=== PATIENT | female | born 1935 | race Caucasian/White ===

== ENCOUNTER 2021-12-24 07:34 | Inpatient (IN) | payer MEDICARE, OTHER ==
[2021-12-24 08:49] LABS: Urine Blood Negative (Negative); Urine Glucose Negative (Negative); Urine Protein Negative (Negative)
[2021-12-24 08:57] LABS: Absolute Lymphocytes (CBC) 0.9 K/uL (0.7-4.9); Hematocrit 34.5 % (36.0-45.0); Lymphocytes % 3.4 % (15.3-44.8); MCV 76.4 fL (80-100); MPV 7.5 fL (7.6-11.3); RBC Red Blood Cell Count 4.52 M/uL (3.86-4.86)
[2021-12-24 08:59] LABS: Protime INR 0.85
[2021-12-24 09:17] LABS: AST/SGOT 14 U/L (15-37); Alkaline Phosphatase 106 U/L (45-117); BUN Blood Urea Nitrogen 12 mg/dL (7-18); Bicarbonate 25 mmol/L (21-32); Bilirubin Direct 0.2 mg/dL (0-0.2); Bilirubin Total 0.3 mg/dL (0.2-1.0); Glomerular Filtration Rate 101 ml/min (=/>90); Glucose Level 166 mg/dL (74-106); NT PRO-BNP 6187 pg/mL (<450); Potassium 3.7 mmol/L (3.5-5.1); Protein, Total 5.8 g/dL (6.4-8.2); Sodium Level 136 mmol/L (136-145)
[2021-12-24 09:18] LABS: ALT/SGPT < 10 U/L (12-78)
[2021-12-24 09:19] LABS: Troponin High Sensitivity 309.5 pg/mL (<58.9)
--- NOTE | 2021-12-24 09:20 | RAD REPORT ---
EXAM DESCRIPTION: [place] Single View12/24/2021 8:29 am CLINICAL HISTORY: Cough COMPARISON: none FINDINGS: Mild elevation right hemidiaphragm The lungs appear clear of acute infiltrate. The heart is normal size
[2021-12-24 09:39] LABS: Blood Morphology Comment NOTED (NOT SEEN); Platelet Estimate INCR; Poikilocytosis SLIGHT
[2021-12-24 09:40] LABS: Burr Cells 1+
[2021-12-24 09:41] LABS: Ovalocytes 1+
--- NOTE | 2021-12-24 10:36 | ER ---
Nurse's Notes [facility] Name: Sussy Armijo Age: 86 yrs Sex: Female : 1935 Arrival Date: 12/24/2021 Time: 07:38 Bed 18 Private MD: Diagnosis: Do not resuscitate;Sepsis, unspecified organism;Altered mental status, unspecified;UTI/ Urinary tract infection, site not specified;Hypotension, unspecified Presentation: 12/24 07:38 Chief complaint: EMS states: DECREASED LOC. Coronavirus screen: At this time, the bp client does not indicate any symptoms associated with coronavirus-19. Ebola Screen: No symptoms or risks identified at this time. Initial Sepsis Screen: Does the patient meet any 2 criteria? Altered Mental Status. No. Patient's initial sepsis screen is negative. Does the patient have a suspected source of infection? No. Patient's initial sepsis screen is negative. Risk Assessment: Do you want to hurt yourself or someone else? Unable to obtain. Note UNKNOWN LAST KNOWN NORMAL. Onset of symptoms is unknown. Care prior to arrival: IV initiated. 22 GA, in the left antecubital area, Glucose check: 143. 07:38 Method Of Arrival: EMS: [facility] bp 07:38 Acuity: DIANDRA 2 bp Triage Assessment: 07:40 General: Appears in no apparent distress. Behavior is unresponsive. Pain: Unable to use bp pain scale. Does not appear to understand pain scale. EENT: No deficits noted. Neuro: Level of Consciousness is unresponsive, Oriented to none. Cardiovascular: Rhythm is sinus rhythm. Respiratory: No deficits noted. GI: No signs and/or symptoms were reported involving the gastrointestinal system. : No signs and/or symptoms were reported regarding the genitourinary system. Derm: No deficits noted. Musculoskeletal: No deficits noted. Historical: - Allergies: 07:40 No Known Allergies; bp - Home Meds: 07:40 Miralax 17 gram/dose Oral powd once daily [Active]; promethazine 25 mg Oral tab 1 tab bp every 4 hours [Active]; lorazepam 0.5 mg Oral tab 1 tab every 4 hours [Active]; bisacodyl 10 mg Rectal supp 1 suppository once daily [Active]; hyoscyamine sulfate 0.125 mg oral tab 1 tab every 4 hours [Active]; - PMHx: 07:40 Anemia; Hypercholesterolemia; Dementia; Depressive disorder; Anxiety; Hypertensive bp disorder; - Immunization history:: Adult Immunizations. - Social history:: Smoking status: unknown. Screenin:40 Abuse screen: Denies threats or abuse. Denies injuries from another. Nutritional bp screening: No deficits noted. Tuberculosis screening: No symptoms or risk factors identified. Fall Risk None identified. Assessment: 07:40 General: SEE TRIAGE NOTE. bp 09:30 Reassessment: FAMILY AT B/S. FAMILY STATES PT IS HOSPICE/DNR AND IS NOT TO RECEIVE bp FURTHER TREATMENT. HOSPITALIST NOTIFIED THAT FAMILY WISHES TO SPEAK WITH HIM. 11:00 Reassessment: No changes from previously documented assessment. Patient and/or family bp updated on plan of care and expected duration. Pain level reassessed. 11:30 Reassessment: PT MOVED TO ER HOLD. bp 22:47 General: Charge nurse was told that patient's daughter would like to speak to charge. tw5 It was explained to the daughter that at time of arrival no rooms were avaiable upstairs, but after shift change they might be. Hospital policy states that a covid test must be done to receive a room upstairs. Daughter aggressively pointing in nursing staff face" ALL OF YOU ARENT DOING ANYTHING TO HELP, SHE SHOULD HAVE NEVER LEFT [place] IN THE FIRST PLACE. ALL OF YOU ARE HORRIBLE AND HORRIBLE PEOPLE." Video Library Assistant notified. . Vital Signs: 07:38 BP 96 / 62; Pulse 65; Resp 12; Temp 98.6; Pulse Ox 95% on 12% Non-rebreather mask; bp Weight 38.56 kg; Height 5 ft. (152.40 cm); 09:00 BP 82 / 60; Pulse 99; Resp 20; Pulse Ox 100% ; bp 10:00 BP 99 / 67; Pulse 97; Resp 18; Pulse Ox 100% ; bp 11:00 BP 82 / 61; Pulse 99; Resp 20; Pulse Ox 100% ; bp 11:30 BP 83 / 63; Pulse 99; Resp 22; Pulse Ox 100% ; bp 07:38 Body Mass Index 16.60 (38.56 kg, 152.40 cm) bp ED Course: 07:38 Patient arrived in ED. bp 07:39 Get Grider MD is Attending Physician. cindy 07:40 Triage completed. bp 07:40 Patient has correct armband on for positive identification. Bed in low position. Call bp light in reach. Side rails up X2. 07:40 Maintain EMS IV. Dressing intact. Good blood return noted. Site clean \\T\\ dry. Gauge \\T\\ bp site: 22 GAUGE LEFT AC. 07:44 Arm band placed on. bp 07:47 Og Castillo, RN is Primary Nurse. bp 08:30 XRAY Chest (1 view) In Process Unspecified. EDMS 08:30 Straight cath inserted, using sterile technique, 18 Fr. Specimen obtained. Returned bp cloudy urine. Patient tolerated well. 08:40 IV discontinued, EMS IV INFILTRATED. bp 08:45 Inserted saline lock: 22 gauge in right antecubital area, using aseptic technique. bp Blood collected. 10:34 Yokasta Loja MD is Hospitalizing Provider. cindy 11:30 No provider procedures requiring assistance completed. bp Administered Medications: 09:00 Drug: NS 0.9% 1000 ml Route: IV; Rate: 125 ml/hr; Site: left antecubital; bp 09:00 Drug: NS 0.9% 500 ml Route: IV; Rate: bolus; Site: left antecubital; bp 11:21 Not Given (Patient Refused): NS 0.9% 1000 ml IV at 1 bolus Per protocol; 1000 mL bolus bp 11:21 Not Given (Patient Refused): Zosyn (piperacillin-tazobactam) 3.375 grams IVPB once over bp 60 mins; (mix in NS 100 mL) Medication: 07:40 VIS not applicable for this client. bp Outcome: 10:36 Decision to Hospitalize by Provider. cindy 11:30 Admitted to ER Hold. Please see [facility] for further documentation. bp 11:30 Condition: stable 11:30 Instructed on the need for admit. 23:20 Patient left the ED. ds4 Signatures: Dispatcher [employer] EDGet Brown MD MD cha Swanson, Donovan ds4 Og Castillo, RENNY RN Amy Carter tw5 Corrections: (The following items were deleted from the chart) 07:44 07:40 PMHx: None; bp bp 13:07 07:38 BP 96 / 62; Pulse 65bpm; Resp 12bpm; Pulse Ox 95% 02 12% Non-rebreather mask; bp Temp 98.6F; bp
--- NOTE | 2021-12-24 10:37 | EDPHYS ---
Physician Documentation [facility] Name: Sussy Armijo Age: 86 yrs Sex: Female : 1935 Arrival Date: 12/24/2021 Time: 07:38 Bed 18 Private MD: ED Physician Get Grider HPI: 12/24 10:20 This 86 yrs old Female presents to ER via EMS with complaints of Altered cindy Mental Status. 10:20 The patient presents with confusion, decreased mental status, decreased responsiveness. cindy Onset: The symptoms/episode began/occurred 2 day(s) ago. Possible causes: CVA or TIA, low blood sugar, sepsis. Associated signs and symptoms: Pertinent positives: confusion, lightheadedness, nausea. Current symptoms: In the emergency department the patient's symptoms have worsened, moderately, is less alert. Patient's baseline: Neuro: alert but confused. The patient has experienced similar episodes in the past, several times. Historical: - Allergies: 07:40 No Known Allergies; bp - Home Meds: 07:40 Miralax 17 gram/dose Oral powd once daily [Active]; promethazine 25 mg Oral tab 1 tab bp every 4 hours [Active]; lorazepam 0.5 mg Oral tab 1 tab every 4 hours [Active]; bisacodyl 10 mg Rectal supp 1 suppository once daily [Active]; hyoscyamine sulfate 0.125 mg oral tab 1 tab every 4 hours [Active]; - PMHx: 07:40 Anemia; Hypercholesterolemia; Dementia; Depressive disorder; Anxiety; Hypertensive bp disorder; - Immunization history:: Adult Immunizations. - Social history:: Smoking status: unknown. ROS: 10:22 Constitutional: Positive for fatigue, malaise, poor PO intake, weight loss. cindy 10:22 Cardiovascular: Positive for palpitations. 10:22 Abdomen/GI: Positive for nausea. 10:22 Neuro: Positive for altered mental status, weakness. 10:22 Unable to obtain ROS due to baseline dementia, patient distress, patient being uncooperative. Exam: 10:22 Constitutional: The patient appears emaciated, lethargic. cindy 10:22 Cardiovascular: Rate: tachycardic, actual rate is 105 bpm. 10:22 ECG was reviewed by the Attending Physician. 10:22 Respiratory: the patient does not display signs of respiratory distress, Respirations: normal, Breath sounds: bronchial sounds, that are mild, are scattered, decreased breath sounds, that are mild, are scattered, Respiratory rate: 20 Vital Signs: 07:38 BP 96 / 62; Pulse 65; Resp 12; Temp 98.6; Pulse Ox 95% on 12% Non-rebreather mask; bp Weight 38.56 kg; Height 5 ft. (152.40 cm); 09:00 BP 82 / 60; Pulse 99; Resp 20; Pulse Ox 100% ; bp 10:00 BP 99 / 67; Pulse 97; Resp 18; Pulse Ox 100% ; bp 11:00 BP 82 / 61; Pulse 99; Resp 20; Pulse Ox 100% ; bp 11:30 BP 83 / 63; Pulse 99; Resp 22; Pulse Ox 100% ; bp 07:38 Body Mass Index 16.60 (38.56 kg, 152.40 cm) bp MDM: 07:39 Patient medically screened. cindy 10:33 Differential Diagnosis altered mental status, sepsis. Differential Diagnosis: cindy electrolyte abnormality, hypoglycemia, pneumonia, seizure, sepsis, TIA, UTI, volume depletion. Data reviewed: vital signs, nurses notes, EMS record, lab test result(s), EKG, radiologic studies, plain films. Data interpreted: ekg monitor: rate is 99 beats/min, rhythm is regular, Pulse oximetry: on room air is 100 %. Test interpretation: by ED physician or midlevel provider: ECG, plain radiologic studies. Counseling: I had a detailed discussion with the patient and/or guardian regarding: the historical points, exam findings, and any diagnostic results supporting the discharge/admit diagnosis, lab results, radiology results, the need for further work-up and treatment in the hospital. 12/24 07:40 Order name: Basic Metabolic Panel; Complete Time: : cindy 12/24 07:40 Order name: CBC with Diff; Complete Time: 10:05 cindy 12/24 07:40 Order name: LFT's; Complete Time: : cindy 12/24 07:40 Order name: Magnesium; Complete Time: : cindy 12/24 07:40 Order name: NT PRO-BNP; Complete Time: : cindy 12/24 07:40 Order name: PT-INR; Complete Time: : cindy 12/24 07:40 Order name: Troponin HS; Complete Time: : [facility] 12/24 07:40 Order name: XRAY Chest (1 view); Complete Time: 09:21 [facility] 12/24 07:40 Order name: Urine Culture [facility] 12/24 08:49 Order name: Urine Dipstick-Ancillary; Complete Time: 09:21 EDUT 12/24 09:08 Order name: Manual Differential; Complete Time: 10:05 EDUT 12/24 09:22 Order name: Blood Culture Adult (2) [facility] 12/24 09:22 Order name: Lactate [facility] 12/24 10:08 Order name: SARS-COV-2 RT PCR (Document "Date of Onset" if Symptomatic) [facility] 12/24 07:40 Order name: EKG; Complete Time: 07:41 [facility] 12/24 07:40 Order name: Cardiac monitoring; Complete Time: 07:48 [facility] 12/24 07:40 Order name: EKG - Nurse/Tech; Complete Time: 09:08 [facility] 12/24 07:40 Order name: IV Saline Lock; Complete Time: 07:48 [facility] 12/24 07:40 Order name: Labs collected and sent; Complete Time: 09:08 [facility] 12/24 07:40 Order name: O2 Per Protocol; Complete Time: 07:48 [facility] 12/24 07:40 Order name: O2 Sat Monitoring; Complete Time: 07:48 [facility] 12/24 07:40 Order name: Urine Dipstick-Ancillary (obtain specimen); Complete Time: 09:07 [facility] 12/24 09:22 Order name: IV Saline Lock - Large Bore; Complete Time: 09:23 [facility] 12/24 10:54 Order name: Regular EDMS EC:22 Rate is 96 beats/min. Rhythm is regular. QRS [place] is Normal. ND interval is shortened cindy at 106 msec. QRS interval is normal. QT interval is normal. No Q waves. T waves are Normal. No ST changes noted. Clinical impression: Abnormal EKG without significant change and No evidence of ischemia. Interpreted by me. Reviewed by me. Administered Medications: 09:00 Drug: NS 0.9% 1000 ml Route: IV; Rate: 125 ml/hr; Site: left antecubital; bp 09:00 Drug: NS 0.9% 500 ml Route: IV; Rate: bolus; Site: left antecubital; bp 11:21 Not Given (Patient Refused): NS 0.9% 1000 ml IV at 1 bolus Per protocol; 1000 mL bolus bp 11:21 Not Given (Patient Refused): Zosyn (piperacillin-tazobactam) 3.375 grams IVPB once over bp 60 mins; (mix in NS 100 mL) Disposition Summary: 12/24/21 10:36 Hospitalization Ordered Hospitalization Status: Inpatient Admission cindy Provider: Yokasta Loja cha Condition: Serious cindy Problem: new cindy Symptoms: have improved cindy Bed/Room Type: Standard cindy Location: Telemetry/MedSurg (Inpatient)(12/24/21 21:58) eb1 Room Assignment: (12/24/21 21:58) eb1 Diagnosis - Do not resuscitate cindy - Sepsis, unspecified organism cindy - Altered mental status, unspecified cindy - UTI/ Urinary tract infection, site not specified cindy - Hypotension, unspecified cindy Forms: - Medication Reconciliation Form cindy - SBAR form cindy Signatures: Dispatcher [employer] EDGet Brown MD MD cha Peltier, Brian RN RN bp Zehra Hyde RN RN eb1 Corrections: (The following items were deleted from the chart) 07:44 07:40 PMHx: None; bp bp 11:21 09:22 Conte ordered. cindy bp 12:55 10:36 Telemetry/MedSurg (Inpatient) cindy bp 12:55 10:36 cindy bp 21:58 12:55 BR ER HOLD bp eb1 21:58 12:55 ERHOLD- bp eb1
[2021-12-24] MEDS ORDERED: ONDANSETRON 4 MG/2 ML VIAL IV PRN (10:49)
[2021-12-24] MEDS: LORazepam 2 MG/ML VIAL IV PRN (12:30)
[2021-12-24 13:17] VITALS: BMI 2390.2
[2021-12-24] MEDS: MORPHINE 4 MG/ML SYR IV PRN (13:45)
[2021-12-24] MEDS ORDERED: MORPHINE 4 MG/ML SYR ONE (13:58)
[2021-12-24] MEDS: METHYLPREDNISOLONE 40 MG INJ IV SCH (17:00)
--- NOTE | 2021-12-24 21:39 | P.HP ---
Certification for Inpatient Patient admitted to: Inpatient With expected LOS: >2 Midnights Patient will require the following post-hospital care: None Practitioner: I am a practitioner with admitting privileges, knowledge of patient current condition, hospital course, and medical plan of care. Services: Services provided to patient in accordance with Admission requirements found in Title 42 Section 412.3 of the Code of Federal Regulations Patient History Date of Service: 12/24/21 Reason for admission: Septic shock /palliative care History of Present Illness: patient is an 86-year-old female who comes in from the custodial. She has been very cachectic and the family did not want her move from the custodial. Patient became very lethargic and difficult to arouse. She had nausea and vomiting. The custodial apparently called the family, and when they did not get an answer today sent the patient to the custodial against the family's wishes. Patient is a do not resuscitate. Family only wants hospice care at this time. They do not want any aggressive measures. I will go ahead and admit the patient inpatient hospice as the family does not want the patient to go back to the custodial. Allergies No Known Allergies Allergy (Unverified 12/24/21 10:56) Home Medications: Bisacodyl [Laxative Suppository] 10 mg RC DAILY 12/24/21 Hyoscyamine Sulfate [Levsin] 0.125 mg PO Q4HR 12/24/21 LORazepam [Lorazepam] 0.5 mg PO Q4H 12/24/21 Polyethylene Glycol 3350 [Miralax] 17 gm PO DAILY 12/24/21 Promethazine Tab [Phenergan] 25 mg PO Q4HR 12/24/21 - Past Medical/Surgical History Has patient received pneumonia vaccine in the past: Yes Diabetic: No -: anemia -: depression -: dementia -: HTN -: HLD Past Surgical History: Unable to obtain - Family History Father Family History: Reviewed- Non-Contributory - Social History Smoking Status: Never smoker Place of Residence: [facility] Review of Systems is unable to be obtained Physical Examination - Vital Signs Temperature: 95 F Blood Pressure: 72/54 Pulse: 115 Respirations: 17 Pulse Ox (%): 100 - Physical Exam General: Unresponsive Respiratory: Diminished Cardiovascular: Irregular heart rate/rhythm Gastrointestinal: Hypoactive, No tenderness Musculoskeletal: No clubbing, No swelling Neurological: Other (unresponsive) - Studies Laboratory Data (last 24 hrs) 12/24/21 08:49: PT 9.3 L, INR 0.85 12/24/21 08:49: WBC 25.7 H*, Hgb 10.9 L, Hct 34.5 L, Plt Count 451 H 12/24/21 08:49: Sodium 136, Potassium 3.7, BUN 12, Creatinine 0.33 L, Glucose 166 H, Magnesium 2.0, Total Bilirubin 0.3, AST 14 L, ALT < 10 L, Alkaline Phosphatase 106 Assessment & Plan - Problems (Diagnosis) (1) Hospice care Current Visit: Yes Status: Acute - Plan Family has decided to proceed with hospice care. comfort measures are in place. Hosp[facility] orders for [facility] Patient is a do not resuscitate. Family wants inpatient hospice at this time. Discharge Plan: Other - Advance Directives Does patient have a Living Will: Yes Does patient have a Durable POA for Healthcare: Yes - Code Status/Comfort Care Comfort Measures: Hospice Care Critical Care: No Time Spent Managing PTS Care (In Minutes): 35
[2021-12-24] MEDS: MORPHINE 2 MG/ML SYR IV SCH (22:00)
[2021-12-25] MEDS: METHYLPREDNISOLONE 40 MG INJ IV SCH ×3 (00:56→16:43)
[2021-12-25] MEDS: MORPHINE 2 MG/ML SYR IV SCH ×4 (04:00→21:33)
[2021-12-25] MEDS: MORPHINE 4 MG/ML SYR IV PRN (08:13)
[2021-12-25] MEDS: LORazepam 2 MG/ML VIAL IV PRN (11:52)
--- NOTE | 2021-12-25 13:08 | EKG ---
Test Date: 2021-12-24 Test Time: 08:33:53 [place] Attendant: BP MEASUREMENT RESULTS: Intervals: Rate: 96 OR: 106 QRSD: 70 QT: 380 QTc: 480 [place]: P: 37 OR: 106 QRS: -46 T: 242 INTERPRETIVE STATEMENTS: Sinus rhythm with short OR Left anterior fascicular block Anteroseptal infarct, age undetermined T wave abnormality, consider lateral ischemia Abnormal ECG No previous ECG available for comparison Electronically Signed On 12-25-21 13:06:44 CDT by Walter Wheeler
[2021-12-26] MEDS: METHYLPREDNISOLONE 40 MG INJ IV SCH ×2 (00:19→08:49)
[2021-12-26] MEDS: MORPHINE 2 MG/ML SYR IV SCH ×5 (04:00→22:35)
--- NOTE | 2021-12-26 07:56 | P.PN ---
Subjective Date of Service: 12/25/21 Patient unresponsive; comfort measures only Review of Systems is unable to be obtained Physical Examination - Vital Signs Temperature: 97.0 F Blood Pressure: 101/60 Pulse: 107 Respirations: 18 Pulse Ox (%): 100 - Physical Exam General: Unresponsive - Studies Microbiology Data (last 24 hrs): 12/24/21 08:45 Clean Catch Urine [place] Count - Final >100,000 CFU/ML. 12/24/21 08:45 Clean Catch Urine - Final Escherichia Coli Gram Neg Rusty Assessment & Plan - Problems (Diagnosis) (1) Hospice care Current Visit: Yes Status: Acute - Plan Continue with comfort measures. Family refusing to go back to [facility]. We will continue with inpatient hospice. - Advance Directives Does patient have a Living Will: Yes Does patient have a Durable POA for Healthcare: Yes - Code Status/Comfort Care Code Status: Do Not Attempt Resuscitat Comfort Measures: Hospice Care
--- NOTE | 2021-12-26 07:57 | P.PN ---
Date of Service: 12/26/21 Subjective Patient unresponsive; comfort measures only Review of Systems is unable to be obtained Physical Examination - Vital Signs reviewed - Physical Exam General: Unresponsive Assessment & Plan - Problems (Diagnosis) (1) Hospice care Current Visit: Yes Status: Acute - Plan Continue with comfort measures. Family refusing to go back to skilled nursing. We will continue with inpatient hospice. - Advance Directives Does patient have a Living Will: Yes Does patient have a Durable POA for Healthcare: Yes - Code Status/Comfort Care Code Status: Do Not Attempt Resuscitat Comfort Measures: Hospice Care
[2021-12-27] MEDS: MORPHINE 2 MG/ML SYR IV SCH ×4 (04:41→23:50)
[2021-12-28] MEDS: MORPHINE 2 MG/ML SYR IV SCH ×4 (05:32→23:41)
[2021-12-28] MEDS: LORazepam 2 MG/ML VIAL IV PRN (21:58)
[2021-12-29] MEDS: MORPHINE 2 MG/ML SYR IV SCH ×4 (05:27→23:23)
[2021-12-29] MEDS: MORPHINE 4 MG/ML SYR IV PRN (08:19)
[2021-12-30] MEDS: MORPHINE 2 MG/ML SYR IV SCH ×4 (05:23→22:59)
[2021-12-31] MEDS: MORPHINE 2 MG/ML SYR IV SCH ×3 (06:31→18:17)
[2021-12-31 09:13] VITALS: BP 98/55; TEMP 98.5
[2021-12-31 10:58] VITALS: O2SAT 91
== END 2021-12-31 19:50 | disposition expired | DRG 951 ==
LOC: ER 07:34 → ERHOLD 10:58 → 2ND 23:02
PROVIDERS: ADMIT Internal Medicine Hematology & Oncology; ATTEND Internal Medicine Hematology & Oncology
DX: Z51.5 Encounter for palliative care (principal); R65.21 Severe sepsis with septic shock
CPT/HCPCS: 36415; 51702; 71045; 80048; 80076; 81003; 83735; 83880; 84484; 85025; 85610; 87077; 87086; 87088; 87186; 93005; 99285; J2270; U0003